=== PATIENT | female | born 2000 | race American Indian/Alaskan Native ===

== ENCOUNTER 2021-05-01 15:19 | Outpatient (CLI) | payer OTHER ==
[2021-05-01 15:42] VITALS: BP 120/68
[2021-05-01 17:26] LABS: Bacteria,Urine 2+ /HPF (Negative); Mucus,Urine FEW /HPF
[2021-05-01 17:27] LABS: Bilirubin,Urine NEG (Negative); Blood,Urine NEG (Negative); Color,Urine Yellow (Yellow); Protein,Urine <15 mg/dL mg/dL (Negative)
[2021-05-01] MEDS: LACTATED RINGERS 1,000 ML IV ONE (18:22)
[2021-05-01] MEDS: cefTRIAXone/NS 1 GM/50 ML 1 GM/50 ML BAG IV ONE (20:23)
--- NOTE | 2021-05-01 20:49 | Ultrasound Report ---
ULTRASOUND BIOPHYSICAL PROFILE INDICATION / CLINICAL INFORMATION: Evaluate SUSI. COMPARISON: None FINDINGS: BREATHING MOVEMENT = 2 GROSS BODY MOVEMENT = 2 TONE = 2 QUALITATIVE AMNIOTIC FLUID VOLUME = 2 TOTAL BIOPHYSICAL SCORE = 02/15 AMNIOTIC FLUID INDEX (cm) = 7.7 PRESENTATION: Cephalic. HEART RATE (beats per minute): 130 IMPRESSION: 1. biophysical profile = 02/15 Signer Name: Berta Rivera MD Signed: 05/01/2021 8:45 PM Workstation Name: [id number]
== END 2021-05-01 20:56 | disposition home or self-care (01) ==
LOC: TRG 15:19 → APU 15:21 → TRG 20:56
PROVIDERS: ATTEND Obstetrics & Gynecology
DX: Z34.93 Encounter for supervision of normal pregnancy, unspecified, third trimester (principal); Z3A.38 38 weeks gestation of pregnancy
CPT/HCPCS: 76815; 76819; 81001; J0696; J7120

== ENCOUNTER 2021-05-03 19:22 | Outpatient (CLI) | payer OTHER ==
[2021-05-04 07:30] VITALS: BP 125/64
== END 2021-05-03 20:50 | disposition home or self-care (01) ==
LOC: TRG 19:22 → APU 19:23 → TRG 20:50 → LD 05-04 07:26 → APU 05-04 07:36
PROVIDERS: ATTEND Obstetrics & Gynecology
DX: O26.853 Spotting complicating pregnancy, third trimester (principal); Z3A.38 38 weeks gestation of pregnancy
CPT/HCPCS: 36415; 59025; 84112

== ENCOUNTER 2021-05-16 17:13 | Outpatient (CLI) | payer OTHER ==
[2021-05-16 17:39] VITALS: BP 123/73
[2021-05-16] MEDS ORDERED: LACTATED RINGERS 1,000 ML IV ONE (18:04)
[2021-05-16] MEDS ORDERED: METOCLOPRAMIDE 10 MG/2 ML INJ IV ONE (18:04)
== END 2021-05-16 18:55 | disposition left against medical advice (07) ==
LOC: TRG 17:13 → APU 17:15 → TRG 18:55
PROVIDERS: ATTEND Obstetrics & Gynecology
DX: O47.1 False labor at or after 37 completed weeks of gestation (principal); O26.893 Other specified pregnancy related conditions, third trimester; R10.9 Unspecified abdominal pain; Z3A.39 39 weeks gestation of pregnancy
CPT/HCPCS: 59025; 96365; J2765; J7120; 96360